=== PATIENT | female | born 1970 | race Caucasian/White ===

== ENCOUNTER 2016-05-23 07:32 | Emergency (ER) | payer OTHER | END 2016-05-23 15:25 | disposition home or self-care (01) | LOC: ER 07:32 | DX: N92.0 Excessive and frequent menstruation with regular cycle (principal); J00 Acute nasopharyngitis [common cold]; R93.5 Abnormal findings on diagnostic imaging of other abdominal regions, including retroperitoneum | CPT/HCPCS: 36415; 71020; 76830; 80053; 81001; 83690; 84703; 85025; 85610; 85730; 86901; 87491; 87591; 87800; 87804 ==